=== PATIENT | male | born 1945 | race Caucasian/White ===

== ENCOUNTER 2018-08-15 14:37 | Emergency (ER) | payer MEDICARE ==
--- NOTE | 2018-08-15 14:50 | ER Document Report ---
ED Medical Screen (RME) - General Chief Complaint: S/S of Possible Stroke Stated Complaint: SLURRED SPEECH,WEAKNESS Time Seen by Provider: 08/15/18 14:49 Mode of Arrival: Ambulatory Information source: Patient TRAVEL OUTSIDE OF THE [place] IN LAST 30 DAYS: No - HPI Patient complains to provider of: slurred speech, facial numbness Onset: This morning - pt. with onset of slurred speech and facial numbness earlier this am - Related Data Allergies/Adverse Reactions: No Known Allergies Allergy (Verified 08/15/18 14:41) Physical Exam - Vital signs Vitals: Temp Pulse Resp BP Pulse Ox 99.1 F 88 16 172/76 H 95 08/15/18 14:47 08/15/18 14:47 08/15/18 14:47 08/15/18 14:47 08/15/18 14:47 Course - Vital Signs Vital signs: Temp Pulse Resp BP Pulse Ox 99.1 F 88 16 172/76 H 95 08/15/18 14:47 08/15/18 14:47 08/15/18 14:47 08/15/18 14:47 08/15/18 14:47
[2018-08-15] MEDS ORDERED: NICARDIPINE HCL RTU, ISO-OS 20 MG/200 ML RTUINJ IV ONE (15:08)
[2018-08-15] MEDS ORDERED: NICARDIPINE HCL RTU, ISO-OS 20 MG/200 ML RTUINJ IV PRN (15:10)
[2018-08-15 15:15] LABS: ABSOLUTE EOSINOPHILS # (AUTO) 0.1 10^3/uL (0.0-0.6); ABSOLUTE LYMPHOCYTES (AUTO) 1.2 10^3/uL (0.5-4.7); ABSOLUTE MONOCYTES (AUTO) 0.6 10^3/uL (0.1-1.4); ABSOLUTE NEUT (AUTO) 4.1 10^3/uL (1.7-8.2); BASOPHILS % (AUTO) 0.3 % (0-2); EOSINOPHILS % (AUTO) 1.5 % (0-6); HEMATOCRIT 44.7 % (37.9-51.0); INTERNATIONAL RATION (INR) 0.87; LYMPHOCYTES % (AUTO) 19.4 % (13-45); MEAN CORPUSCULAR HEMOGLOBIN 32.9 pg (27.0-33.4); MEAN CORPUSCULAR HGB CONC 35.8 g/dL (32.0-36.0); MEAN CORPUSCULAR VOLUME 92 fl (80-97); PARTIAL THROMBOPLASTIN TIME 24.7 SEC (23.5-35.8); PLATELET COUNT 179 10^3/uL (150-450); PROTHROMBIN TIME 12.3 SEC (11.4-15.4); RED BLOOD COUNT 4.88 10^6/uL (4.35-5.55); RED CELL DISTRIBUTION WIDTH 13.1 % (11.5-14.0); SEGMENTED NEUTROPHILS % (AUTO) 68.8 % (42-78); TOTAL CELLS COUNTED % (AUTO) 100 %; WHITE BLOOD COUNT 5.9 10^3/uL (4.0-10.5)
--- NOTE | 2018-08-15 15:19 | ER Document Report ---
ED General - General Chief Complaint: S/S of Possible Stroke Stated Complaint: SLURRED SPEECH,WEAKNESS Time Seen by Provider: 08/15/18 14:49 Mode of Arrival: Ambulatory Information source: Patient Notes: Patient is a 73-year-old male with past medical history of high blood pressure and diabetes who presents today stating around 9 AM he was sitting at his [employer] shop and started to have a little bit of difficulty speaking. He denies any difficulty making speech but just states that his words are difficult to make secondary to the inability to move his lips appropriately. He denies any headache, weakness or numbness to his arms or legs. Patient is not taking any blood thinning medications. However the family did provide aspirin prior to arrival. Patient denies any headaches, neck pain, recent trauma, chest pain, abdominal pain, weakness or numbness of the extremities. TRAVEL OUTSIDE OF THE [place] IN LAST 30 DAYS: No - HPI Onset: Other - See above Onset/Duration: Sudden Quality of pain: No pain Severity: Moderate Pain Level: Denies Associated symptoms: Other - See above Exacerbated by: Denies Relieved by: Denies Similar symptoms previously: No Recently seen / treated by doctor: No - Related Data Allergies/Adverse Reactions: No Known Allergies Allergy (Verified 08/15/18 14:41) Past Medical History - General Information source: Patient - Social History Smoking Status: Unknown if Ever Smoked Family History: Reviewed & Not Pertinent Review of Systems - Review of Systems Constitutional: denies: Fever EENT: denies: Eye discharge, Nose discharge Respiratory: denies: Short of breath Gastrointestinal: denies: Vomiting Genitourinary: denies: Dysuria Musculoskeletal: denies: Leg swelling Skin: Other - no hives. denies: Rash Neurological/Psychological: Other - no slurred speech -: Yes All other systems reviewed and negative Physical Exam - Vital signs Vitals: Temp Pulse Resp BP Pulse Ox 99.1 F 88 16 172/76 H 95 08/15/18 14:47 08/15/18 14:47 08/15/18 14:47 08/15/18 14:47 08/15/18 14:47 Notes: Reviewed vital signs and nursing note as charted by RN. CONSTITUTIONAL: Alert and oriented and responds appropriately to questions. Well -appearing; well-nourished HEAD: Normocephalic; atraumatic EYES: PERRL; full extraocular range of motion ENT: Normal nose; no rhinorrhea; moist mucous membranes; pharynx without lesions noted NECK: Supple without meningismus; non-tender; carotid bruit; no cervical lymphadenopathy, no masses CARD: Regular rate and rhythm; no murmurs; symmetric distal pulses RESP: Normal chest excursion without splinting or tachypnea; breath sounds clear and equal bilaterally; no wheezes, no rhonchi, no rales ABD/GI: Normal bowel sounds; non-distended; soft, non-tender BACK: The back appears normal EXT: Normal ROM in all joints; non-tender to palpation; no edema SKIN: No acute lesions noted NEURO: Patient has some mild facial drooping to the right corner of the patient' s mouth; cranial nerves are otherwise intact; 5/5 bilateral upper and lower extremity strength with sensation intact to light touch. NIH score is a 3 PSYCH: The patient's mood and manner are appropriate. Grooming and personal hygiene are appropriate. Course - Re-evaluation Re-evalutation: 08/15/18 15:17 Patient was expedited to CT scan. I initially interpreted the CT scan myself as a possible thalamic or rachele-thalamic bleed. Radiologist called me back and states it is a 12 mm x 6 mm left periventricular hemorrhage extending to the basal ganglia. There is a little bit of blood seen in the left ventricle as well. Given the intracerebral hemorrhage, the patient is obviously not a TPA candidate. Blood pressure was 190/90. Patient still denies any headache. Still no weakness or numbness to the arms or legs. I have already paged and spoke to the transfer center/consultation line at [facility] to discuss the case with the neurosurgeon and admit the patient to the hospital. I will start the patient on a Cardene drip. Accu-Chek is 312. 08/15/18 15:42 Labs and coagulation profile as recorded. No change in examination. I am still waiting for the call back from the neurosurgeon. EKG shows a heart rate of 76, normal sinus rhythm, normal axis, no obvious ST elevation or depression 08/15/18 15:52 Repeat blood pressure was 159 systolic. The neurosurgical team is called me back and they state that they would like it around 160. They are not requesting any acute insulin/glucose management. 12/15/18 16:02 I have spoken to the automotive glass specialist who agrees with the blood pressure plan. They have accepted the patient. No change in examination. Blood pressure is around 165 systolic which is excellent. I have provided a small dose of IV insulin as well as every hour Accu-Cheks. - Vital Signs Vital signs: Temp Pulse Resp BP Pulse Ox 99.1 F 91 18 159/71 H 96 08/15/18 14:47 08/15/18 15:38 08/15/18 15:38 08/15/18 15:38 08/15/18 15:38 - Laboratory Result Diagrams: 08/15/18 15:00 08/15/18 15:00 Laboratory results interpreted by me: 08/15/18 08/15/18 15:00 15:04 Carbon Dioxide 35 H Glucose 314 H POC Glucose 321 H Total Bilirubin 2.5 H ALT 17 L Creatine Kinase 35 L Critical Care Note - Critical Care Note Total time excluding time spent on procedures (mins): 45 Discharge - Discharge Clinical Impression: Intracerebral bleed Qualifiers: Intracerebral hemorrhage etiology: nontraumatic Cerebral hemorrhage location: other cerebral location Laterality: left Qualified Code(s): I61.8 - Other nontraumatic intracerebral hemorrhage Condition: Serious Disposition: [facility]ATRIC HOSPITAL Unit Admitted: ICU
--- NOTE | 2018-08-15 15:23 | RADIOLOGY REPORT (SQ) ---
EXAM DESCRIPTION: CT HEAD WITHOUT COMPLETED DATE/TIME: 08/15/2018 2:56 pm REASON FOR STUDY: poss stroke . Left-sided facial droop, stroke symptoms. COMPARISON: None. TECHNIQUE: Axial images acquired through the brain without intravenous contrast. Images reviewed wi th bone, brain and subdural windows. Images stored on PACS. All CT scanners at this facility use dose modulation, iterative reconstruction, and/or weight based d osing when appropriate to reduce radiation dose to as low as reasonably achievable (ALARA). [facility]: Dose Right [facility]: CareDose [facility]: Dose Right [facility]: Teradose 4D [facility]: [employer] RADIATION DOSE: CT Rad equipment meets quality standard of care and radiation dose reduction techniq ues were employed. CTDIvol: 53.2 mGy. DLP: 1044 mGy-cm. mGy. LIMITATIONS: None. FINDINGS: VENTRICLES: There is a trace amount of hemorrhage in the body of the left lateral ventric le. The ventricles are prominent, consistent with diffuse parenchymal volume loss. CEREBRUM: There is a small area of hemorrhage at the left periventricular white matter measuring appr oximately 12 mm in length and 6 mm in width. There is mild adjacent edema. No midline shift. No ma ss effect. Elsewhere in the brain the engle-white matter differentiation is preserved. CEREBELLUM: No hemorrhage. No alteration of density. No evidence for acute infarction. EXTRAAXIAL SPACES: Age-related involutional change. No fluid collections. ORBITS AND GLOBE: Symmetrical contour of the globes. CALVARIUM: No depressed fracture. PARANASAL SINUSES: No air-fluid level. SOFT TISSUES: No hematoma. IMPRESSION: 1. Acute intracranial hemorrhage at the left periventricular white matter into the basa l ganglia and with intraventricular extension with trace hemorrhage at the left lateral ventricle, ma y be secondary to hypertensive hemorrhage versus a small hemorrhagic stroke. 2. Diffuse parenchymal volume loss. EVIDENCE OF ACUTE STROKE: Acute intracranial hemorrhage at the left periventricular white matter into the basal ganglia and with intraventricular extension with trace hemorrhage at the left lateral vent ricle, may be secondary to hypertensive hemorrhage versus a small hemorrhagic stroke. COMMUNICATION The critical information above was relayed directly by me by telephone to DR. EMILY arrington 08/15/2018 at 15:10 hours with readback verification. Quality ID # [id number]: Final reports with documentation of one or more dose reduction techniques (e.g., Au tomated exposure control, adjustment of the mA and/or kV according to patient size, use of iterative reconstruction technique) TECHNICAL DOCUMENTATION: JOB ID: [id number] [email or web address]- All Rights Reserved Reading location - IP/workstation name: [email or web address]
[2018-08-15 15:26] LABS: ALANINE AMINOTRANSFERASE 17 U/L (21-72); ALBUMIN 4.5 g/dL (3.5-5.0); ALKALINE PHOSPHATASE 92 U/L (38-126); ANION GAP 6 (5-19); ASPARTATE AMINO TRANSFERASE 19 U/L (17-59); BILIRUBIN,DIRECT 0.4 mg/dL (0.0-0.4); BILIRUBIN,TOTAL 2.5 mg/dL (0.2-1.3); BLOOD UREA NITROGEN 13 mg/dL (7-20); CALCIUM 9.9 mg/dL (8.4-10.2); CARBON DIOXIDE 35 mmol/L (22-30); CHLORIDE 99 mmol/L (98-107); CREATINE KINASE 35 U/L (55-170); GLUCOSE 314 mg/dL (75-110); POTASSIUM 4.5 mmol/L (3.6-5.0); SODIUM 140.4 mmol/L (137-145); TOTAL PROTEIN 7.5 g/dL (6.3-8.2)
[2018-08-15 15:38] LABS: CREATINE KINASE MB 0.79 ng/mL (<4.55)
[2018-08-15 15:39] LABS: TROPONIN I < 0.012 ng/mL
--- NOTE | 2018-08-15 15:45 | RADIOLOGY REPORT (SQ) ---
EXAM DESCRIPTION: CHEST SINGLE VIEW COMPLETED DATE/TIME: 08/15/2018 3:13 pm REASON FOR STUDY: poss stroke COMPARISON: None. NUMBER OF VIEWS: One view. TECHNIQUE: Single frontal radiographic view of the chest acquired. LIMITATIONS: None. FINDINGS: LUNGS AND PLEURA: No opacities, masses or pneumothorax. No pleural effusion. MEDIASTINUM AND HILAR STRUCTURES: No masses. Contour normal. HEART AND VASCULAR STRUCTURES: Heart normal in size. Normal vasculature. BONES: No acute findings. HARDWARE: None in the chest. OTHER: No other significant finding. IMPRESSION: NO SIGNIFICANT RADIOGRAPHIC FINDING IN THE CHEST. TECHNICAL DOCUMENTATION: JOB ID: [id number] [email or web address]- All Rights Reserved Reading location - IP/workstation name: [email or web address]
[2018-08-15] MEDS ORDERED: INSULIN REG, HUMAN 100 UNIT/ML 3 ML VIAL (PYX) IV ONE (16:01)
[2018-08-15 20:05] VITALS: BP 150/77
--- NOTE | 2018-08-17 00:43 | EKG REPORT ---
SEVERITY:- NORMAL ECG - SINUS RHYTHM : Confirmed by: Adrienne Almeida MD 17-Aug-2018 00:42:21
== END 2018-08-15 20:15 | disposition short-term general hospital (02) ==
LOC: ER 14:37
DX: I61.8 Other nontraumatic intracerebral hemorrhage (principal); R47.81 Slurred speech; R53.1 Weakness; I10 Essential (primary) hypertension; E11.9 Type 2 diabetes mellitus without complications
CPT/HCPCS: 93005; 99291; 96365; 96366; 36415; 82553; 82962; 82550; 85025; 85610; 85730; 80053; 84484; 71045; 70450; 93010; J3490